=== PATIENT | male | born 1975 | race Caucasian/White ===

== ENCOUNTER 2021-07-04 16:01 | Inpatient (IN) | payer BC ==
[2021-07-04 16:49] VITALS: BMI 27.7
[2021-07-04] MEDS ORDERED: MAGNESIUM HYDROX 2400MG/30ML ORAL SUSPENSION 30 ML CUP PO PRN (18:36)
[2021-07-04] MEDS ORDERED: MAGNESIUM CITRATE 300 ML BOTTLE PO PRN (18:36)
[2021-07-04] MEDS ORDERED: ACETAMINOPHEN 325 MG TABLET (FP) PO PRN ×2 (18:36)
[2021-07-04] MEDS ORDERED: BISMUTH SUBSALICYLATE 524 MG/30 ML PO PRN (18:36)
[2021-07-04] MEDS ORDERED: MENTHOL/PHENOL 1 EACH UD MM PRN (18:36)
[2021-07-04] MEDS ORDERED: MAG HYDROX/AL HYDROX/SIMETH 30 ML UNIT-DOSE CUP PO PRN (18:36)
[2021-07-04] MEDS ORDERED: NICOTINE POLACRILEX 2 MG GUM BUC PRN (18:36)
[2021-07-04] MEDS ORDERED: IBUPROFEN 400 MG TABLET (FP) PO PRN (18:36)
[2021-07-04] MEDS: THIAMINE HCL 100 MG TABLET (FP) PO SCH (22:32)
[2021-07-04] MEDS: MELATONIN 5 MG TABLETS PO SCH (22:32)
[2021-07-04] MEDS: diazePAM 5 MG TABLET PO SCH (22:33)
[2021-07-04] MEDS: ONDANSETRON *ODT* 4 MG TABLET SL PRN (22:35)
[2021-07-05] MEDS: ALBUTEROL SO4 HFA INHALER IH PRN ×4 (05:05→22:14)
[2021-07-05] MEDS: METHOCARBAMOL 500 MG TABLET PO PRN ×3 (05:26→17:46)
[2021-07-05] MEDS: diazePAM 5 MG TABLET PO SCH ×4 (05:26→22:15)
[2021-07-05] MEDS: ONDANSETRON *ODT* 4 MG TABLET SL PRN (05:29)
[2021-07-05] MEDS: PRENATAL VITAMINS W/ FOLIC ACID TABLET (FP) PO SCH (09:54)
[2021-07-05] MEDS: ARTIFICIAL TEARS (POLYVINYL ALCOHOL) OPTH DROPS OU PRN ×2 (10:42→22:14)
[2021-07-05 11:22] LABS: HEMATOCRIT 37.5 % (35.4-49); MCH 28.9 pg (25.7-33.7); MCHC 34.7 g/dl (32.0-35.9); MEAN CELL VOLUME 83.2 fl (80-96); MEAN PLT VOLUME 8.6 fl (7.5-11.1); PLATELET COUNT 196 10^3/uL (134-434); RBC 4.51 M/mm3 (4.00-5.60); RDW 15.1 % (11.9-15.9); WHITE BLOOD COUNT 4.7 K/mm3 (4.0-10.0)
[2021-07-05 11:29] LABS: CALCIUM 8.8 mg/dL (8.5-10.1)
[2021-07-05 11:30] LABS: ALBUMIN 3.1 g/dl (3.4-5.0)
[2021-07-05 11:31] LABS: CREATININE 0.9 mg/dL (0.55-1.3)
[2021-07-05 11:33] LABS: BILIRUBIN,TOTAL 0.8 mg/dL (0.2-1)
[2021-07-05] MEDS: diazePAM 5 MG TABLET PO PRN (15:07)
[2021-07-05] MEDS ORDERED: MIRTAZAPINE 15 MG TABLET (FP) PO ONE (22:00)
[2021-07-05] MEDS: THIAMINE HCL 100 MG TABLET (FP) PO SCH (22:14)
[2021-07-05] MEDS: MELATONIN 5 MG TABLETS PO SCH (22:14)
[2021-07-06] MEDS: diazePAM 5 MG TABLET PO SCH ×3 (06:17→22:08)
[2021-07-06] MEDS: METHOCARBAMOL 500 MG TABLET PO PRN ×2 (06:20→13:41)
[2021-07-06] MEDS: ALBUTEROL SO4 HFA INHALER IH PRN ×2 (06:21→22:10)
[2021-07-06] MEDS: PRENATAL VITAMINS W/ FOLIC ACID TABLET (FP) PO SCH (10:16)
[2021-07-06] MEDS: diazePAM 5 MG TABLET PO PRN (10:17)
[2021-07-06] MEDS: SUVOREXANT 10 MG TABLET PO PRN (22:07)
[2021-07-06] MEDS: THIAMINE HCL 100 MG TABLET (FP) PO SCH (22:08)
[2021-07-06] MEDS: ARTIFICIAL TEARS (POLYVINYL ALCOHOL) OPTH DROPS OU PRN (22:09)
[2021-07-07] MEDS: diazePAM 5 MG TABLET PO SCH ×2 (05:47→17:26)
[2021-07-07] MEDS: PRENATAL VITAMINS W/ FOLIC ACID TABLET (FP) PO SCH (10:35)
[2021-07-07] MEDS: diazePAM 5 MG TABLET PO PRN ×2 (10:36→14:12)
[2021-07-07] MEDS: METHOCARBAMOL 500 MG TABLET PO PRN ×2 (14:15→22:19)
[2021-07-07] MEDS: ARTIFICIAL TEARS (POLYVINYL ALCOHOL) OPTH DROPS OU PRN ×2 (14:17→22:18)
[2021-07-07] MEDS: THIAMINE HCL 100 MG TABLET (FP) PO SCH (22:19)
[2021-07-07] MEDS: ALBUTEROL SO4 HFA INHALER IH PRN (22:19)
[2021-07-07] MEDS: SUVOREXANT 10 MG TABLET PO PRN (22:21)
[2021-07-08] MEDS: ALBUTEROL SO4 HFA INHALER IH PRN (04:38)
[2021-07-08] MEDS: ARTIFICIAL TEARS (POLYVINYL ALCOHOL) OPTH DROPS OU PRN (04:39)
[2021-07-08] MEDS: METHOCARBAMOL 500 MG TABLET PO PRN (05:34)
[2021-07-08] MEDS ORDERED: diazePAM 5 MG TABLET PO ONE (06:00)
[2021-07-08 08:48] VITALS: BP 141/95; PULSE 94; TEMP 97.1
[2021-07-08] MEDS: PRENATAL VITAMINS W/ FOLIC ACID TABLET (FP) PO SCH (09:22)
== END 2021-07-08 09:23 | disposition home or self-care (01) | DRG 775 ==
LOC: YASAS 16:01 → Y3N 20:51
PROVIDERS: ADMIT Allergy & Immunology; ATTEND Allergy & Immunology
PROC: HZ2ZZZZ Detoxification Services for Substance Abuse Treatment (ICD-10-PCS; principal; 2021-07-04)
DX: F10.230 Alcohol dependence with withdrawal, uncomplicated (principal); F13.20 Sedative, hypnotic or anxiolytic dependence, uncomplicated; F12.20 Cannabis dependence, uncomplicated; F17.210 Nicotine dependence, cigarettes, uncomplicated; F19.282 Other psychoactive substance dependence with psychoactive substance-induced sleep disorder; G47.00 Insomnia, unspecified; I48.20 Chronic atrial fibrillation, unspecified; Z98.890 Other specified postprocedural states; Z98.84 Bariatric surgery status; Z91.013 Allergy to seafood
CPT/HCPCS: 36415; 80053; 85027; 86780; 93005; 93010; C9803; Q0162; U0003; U0005